=== PATIENT | female | born 1970 | race Two or more races ===

== ENCOUNTER 2024-02-26 06:00 | Day surgery (SDC) | payer OTHER ==
[2024-02-26] MEDS ORDERED: fentaNYL CITRATE 50 MCG/ML AMPUL IV PUSH ONE (09:45)
[2024-02-26] MEDS ORDERED: DIPHENHYDRAMINE HCL 50 MG/ML VIAL 1ML IV ONE (09:45)
[2024-02-26] MEDS ORDERED: MIDAZOLAM HCL 2 MG/2 ML VIAL IV ONE (09:45)
== END 2024-02-26 10:50 | disposition home or self-care (01) ==
LOC: AMB-ENDOS 06:00 → CIR.AMB 14:15
PROVIDERS: ATTEND Colon & Rectal Surgery
DX: C20 Malignant neoplasm of rectum (principal); K62.82 Dysplasia of anus; K64.0 First degree hemorrhoids

== ENCOUNTER 2024-04-28 10:45 | Inpatient (IN) | payer OTHER ==
[~2024-04-28] VITALS: Ht 167.6 cm; Wt 52.6 kg
[2024-04-28] MEDS ORDERED: MULTIVITAMINS1 EAC4 PO (14:16)
[2024-04-28] MEDS ORDERED: PROBIOTIC250 MG PO (14:16)
[2024-04-28 14:17] VITALS: BP 120/77
[2024-04-28] MEDS ORDERED: OMEGA-31000 MG PO (14:17)
[2024-04-28] MEDS ORDERED: HORIZANT300 MG PO (14:17)
[2024-05-05] MEDS ORDERED: CEFTRIAXONE SODIUM 2,000 MG VIAL ONE (13:08)
[2024-05-05] MEDS ORDERED: METRONIDAZOLE/SODIUM CHLORIDE 500 MG/100 ML PIGGYBACK IV ONE ×2 (13:14→15:45)
[2024-05-05] MEDS ORDERED: BUPIVACAINE HCL/MPF 0.5% 30ML VIAL ONE (15:25)
[2024-05-05] MEDS ORDERED: BUPIVACAINE HCL 30 ML VIAL IJ ONE (15:45)
[2024-05-05] MEDS ORDERED: CEFTRIAXONE SODIUM 2,000 MG VIAL IV ONE (15:45)
[2024-05-05] MEDS ORDERED: CHLORHEXIDINE GLUCONATE 120 ML BOTTLE TOP ONE ×2 (16:08→17:00)
[2024-05-05] MEDS ORDERED: MORPHINE SULFATE 4 MG/ML CARTRIDGE IV PRN ×2 (16:30→18:45)
[2024-05-05] MEDS ORDERED: RINGERS SOLUTION,LACTATED 1,000 ML IV SCH ×2 (16:30→18:45)
[2024-05-05] MEDS ORDERED: OxyCODONE HCL 5 MG TABLET (ROXICODONE) PO PRN ×2 (16:30→18:45)
[2024-05-05] MEDS ORDERED: DEXTROSE 50 % IN WATER 0.5 G/ML DISP.SYRIN IV PRN ×2 (16:30→18:45)
[2024-05-05] MEDS ORDERED: ONDANSETRON HCL 2 MG/ML VIAL IV PRN ×2 (16:30→18:45)
[2024-05-05] MEDS ORDERED: POLYETHYLENE GLYCOL 3350 17 GM BLIST.PACK PO SCH (17:00)
[2024-05-05] MEDS ORDERED: GABAPENTIN 300 MG CAPSULE PO SCH (17:00)
[2024-05-05] MEDS ORDERED: CELECOXIB 200 MG CAPSULE PO SCH (17:00)
[2024-05-05] MEDS ORDERED: HYOSCYAMINE SULFATE 0.125 MG TAB.SUBL SL SCH (17:00)
[2024-05-05] MEDS ORDERED: THROMBIN,HU/FIBRINOGEN/CALCIUM 10 ML SYRINGE TOP ONE ×2 (17:23→17:30)
[2024-05-05] MEDS ORDERED: VISTASEAL DUAL APPICATOR 1 EACH APPL TOP ONE ×2 (17:23→17:30)
[2024-05-05] MEDS ORDERED: SUGAMMADEX SODIUM 200 MG/2 ML VIAL IV ONE ×2 (18:31→18:45)
[2024-05-05] MEDS ORDERED: ACETAMINOPHEN 500 MG GEL..CAP PO SCH ×2 (20:00)
[2024-05-05] MEDS ORDERED: SIMETHICONE 125 MG CAPSULE PO SCH (21:00)
[2024-05-05] MEDS ORDERED: FAMOTIDINE/PF 20 MG/2 ML VIAL IV PUSH SCH ×2 (21:00)
[2024-05-05] MEDS ORDERED: FAMOTIDINE/PF 20 MG/2 ML VIAL ONE (21:48)
[2024-05-05 22:31] VITALS: BP 138/74; O2SAT 96
[2024-05-05 22:59] LABS: HEMATOCRIT 32.7 % (36.0-45.00); HEMOGLOBIN 11.1 g/dL (12.0-15.00); MEAN CELL VOLUME 91.3 fL (80.00-100.00); MEAN CORPUSCULAR HEMOGLOBIN 30.9 pg (27.00-32.0); MEAN CORPUSCULAR HGB CONC 33.8 g/dl (32.0-36.0); PLATELET COUNT 165 K/uL (150-450); RED BLOOD COUNT 3.58 M/uL (4.00-6.00); RED CELL DISTRIBUTION WIDTH 13.6 % (11.5-14.5)
[2024-05-05 23:19] LABS: ALBUMIN 3.2 gm/dL (3.4-5.0); CALCIUM 9.3 mg/dL (8.5-10.1); GFR 123.83; MAGNESIUM 1.5 mg/dL (1.8-2.4); PHOSPHOROUS 3.6 mg/dL (2.5-4.9); POTASSIUM 3.31 mEq/L (3.5-5.1)
[2024-05-05 23:20] LABS: CREATININE SERUM 0.52 mg/dL (0.55-1.02)
[2024-05-06] VITALS: BP 122/61; O2SAT 100
[2024-05-06] MEDS ORDERED: GABAPENTIN 300 MG CAPSULE PO SCH (01:00)
[2024-05-06] MEDS ORDERED: METOCLOPRAMIDE HCL 5 MG/ML VIAL IV SCH (01:00)
[2024-05-06] MEDS ORDERED: CELECOXIB 200 MG CAPSULE PO SCH (05:00)
[2024-05-06 07:41] LABS: HEMATOCRIT 30.4 % (36.0-45.00); HEMOGLOBIN 10.7 g/dL (12.0-15.00); MEAN CELL VOLUME 92.1 fL (80.00-100.00); MEAN CORPUSCULAR HEMOGLOBIN 32.5 pg (27.00-32.0); MEAN CORPUSCULAR HGB CONC 35.3 g/dl (32.0-36.0); PLATELET COUNT 136 K/uL (150-450); RED CELL DISTRIBUTION WIDTH 13.1 % (11.5-14.5)
[2024-05-06 08:00] VITALS: BP 107/70; O2SAT 97
[2024-05-06 08:49] LABS: ALBUMIN 2.8 gm/dL (3.4-5.0); CALCIUM 8.5 mg/dL (8.5-10.1); CREATININE SERUM 0.44 mg/dL (0.55-1.02); GFR 150.16; MAGNESIUM 1.5 mg/dL (1.8-2.4); PHOSPHOROUS 4.1 mg/dL (2.5-4.9); POTASSIUM 3.68 mEq/L (3.5-5.1)
[2024-05-06] MEDS ORDERED: LACTULOSE 20 G/30 ML BLIST.PACK PO SCH (09:00)
[2024-05-06] MEDS ORDERED: LACTOBACILLUS ACIDOPHILUS 1 CAP CAP PO SCH (09:00)
[2024-05-06] MEDS ORDERED: HYOSCYAMINE SULFATE 0.125 MG TAB.SUBL SL SCH (09:00)
[2024-05-06 16:29] VITALS: BP 112/50; O2SAT 97
[2024-05-06] MEDS ORDERED: ENOXAPARIN SODIUM 40 MG/0.4 ML SYRINGE SUBCUTANEO SCH (17:00)
[2024-05-06] MEDS ORDERED: POLYETHYLENE GLYCOL 3350 17 GM BLIST.PACK PO SCH (17:00)
[2024-05-07 00:49] VITALS: BP 121/64; O2SAT 98
[2024-05-07 08:00] VITALS: BP 93/63; O2SAT 98
[2024-05-07] MEDS ORDERED: ENOXAPARIN SODIUM 40 MG/0.4 ML SYRINGE SUBCUTANEO SCH ×3 (09:00→17:00)
[2024-05-07 16:00] VITALS: BP 127/82; O2SAT 96
[2024-05-08 00:40] VITALS: BP 116/73; O2SAT 98
[2024-05-08 08:00] VITALS: BP 116/74; O2SAT 96
[2024-05-08 16:30] VITALS: BP 125/72; O2SAT 98
[2024-05-09] VITALS: BP 112/60; O2SAT 98
[2024-05-09 08:00] VITALS: BP 121/70; O2SAT 100
[2024-05-09] MEDS ORDERED: LOPERAMIDE2 M1 PO (12:21)
[2024-05-09 16:00] VITALS: BP 117/70; O2SAT 95
== END 2024-05-09 17:00 | disposition home or self-care (01) | DRG 330 ==
LOC: SURH 05-05 07:00 → O/R 05-05 08:15 → SURH 05-05 10:45
PROVIDERS: ADMIT Colon & Rectal Surgery; ATTEND Colon & Rectal Surgery
PROC: 0DTP4ZZ Resection of Rectum, Percutaneous Endoscopic Approach (ICD-10-PCS; 2024-05-05)
PROC: 07BB4ZZ Excision of Mesenteric Lymphatic, Percutaneous Endoscopic Approach (ICD-10-PCS; 2024-05-05)
PROC: 07BC4ZZ Excision of Pelvis Lymphatic, Percutaneous Endoscopic Approach (ICD-10-PCS; 2024-05-05)
PROC: 0DBL4ZZ Excision of Transverse Colon, Percutaneous Endoscopic Approach (ICD-10-PCS; 2024-05-05)
PROC: 0DJD8ZZ Inspection of Lower Intestinal Tract, Via Natural or Artificial Opening Endoscopic (ICD-10-PCS; 2024-05-05)
PROC: 0D1B4Z4 Bypass Ileum to Cutaneous, Percutaneous Endoscopic Approach (ICD-10-PCS; principal; 2024-05-05 07:00)
DX: C20 Malignant neoplasm of rectum (principal); K92.1 Melena; D49.0 Neoplasm of unspecified behavior of digestive system; R59.0 Localized enlarged lymph nodes; Z43.2 Encounter for attention to ileostomy; Z43.3 Encounter for attention to colostomy